=== PATIENT | female | born 1985 | race Caucasian/White ===

== ENCOUNTER 2021-06-03 10:57 | Emergency (ER) | payer OTHER, SELFPAY ==
[2021-06-03] VITALS (9 sets, daily range): BP systolic 149–189; BP diastolic 99–117; PULSE 61–82; RESP 12–25; TEMP 36.4; O2SAT 99–100
--- NOTE | ~2021-06-03 | XR_ITS ---
XR chest 2V DATE: 06/03/2021 12:02 INDICATION: Chest pain started today TECHNIQUE: PA and lateral views COMPARISON: None FINDINGS: Normal heart size. No hilar or mediastinal enlargement. No pulmonary infiltrate or consolid ation, pleural effusion or pulmonary vascular congestion or pneumothorax. Status post cholecystectomy. Included skeletal structures appear normal. IMPRESSION: No active cardiac pulmonary disease Status post cholecystectomy Reviewed, dictated and finalized at location A. FIRST ASSIST REGISTERED NURSE
--- NOTE | 2021-06-03 11:05 | ECG_ITS ---
Measurements Intervals [place] Rate: 70 P: 30 UT: 176 QRS: -7 QRSD: 85 T: 16 QT: 392 QTc: 426 Interpretive Statements SINUS RHYTHM VOLTAGE CRITERIA FOR LVH BORDERLINE R WAVE PROGRESSION, ANTERIOR LEADS MINIMAL Q WAVES- HIGH LATERAL LEADS BORDERLINE ECG Electronically Signed On 06-03-2021 14:28:17 BASE LOADER by Oscar De León D.O.
[2021-06-03 12:02] LABS: Partial Thromboplastin Time 23.1 SECONDS (22.3-36.8)
[2021-06-03 12:07] LABS: INR 1.1; Prothrombin Time 13.8 Seconds (11.1-14.7)
[2021-06-03 12:08] LABS: Alanine Aminotransferase 21 U/L (4-35); Albumin Level 4.4 g/dL (3.5-5.1); Alkaline Phosphatase 90 U/L (38-126); Anion Gap 8 mmol/L (8-16); Aspartate Amino Transferase 27 U/L (14-36); Bilirubin,Total 0.4 mg/dL (0.2-1.3); Blood Urea Nitrogen 13 mg/dL (7-17); Calcium 8.9 mg/dL (8.4-10.2); Carbon Dioxide 25 mmol/L (22-30); Chloride 103 mmol/L (98-107); Estimated CRCL calculation 89 ml/min; Estimated Glomerular Filt Rate > 60; Glucose 93 mg/dL (65-110); Lipase 42 U/L (23-300); Potassium 4.3 mmol/L (3.4-5.0); Sodium 136 mmol/L (137-145)
[2021-06-03 12:19] LABS: Troponin I < 0.012 ng/mL (0.000-0.034)
--- NOTE | 2021-06-03 12:24 | ED.GENADULT ---
HPI - General Adult General Chief complaint: Chest Pain Stated complaint: chest pain Time Seen by Provider: 06/03/21 11:30 Source: patient Mode of arrival: ambulatory Limitations: no limitations History of Present Illness HPI narrative: Patient presents for evaluation of chest congestion and chest tightness. She indicates she tested positive for Covid at home approximately 2 weeks ago. At that time she was having sinus congestion. That improved however she has developed chest congestion in the past three days. She reports nonproductive cough. She states she has experienced intermittent chest tightness since yesterday. Symptoms occur quite frequently. She does note that her symptoms do occur with cough and deep inspiration however she also has symptoms otherwise. She usually has back pain between the scapulas when this happens. She denies any fever, chills, nausea, vomiting, diarrhea. She has been taking mucinex for her symptoms. She is a former smoker. No personal or family hx of DVT/PE. No leg swelling. She is not on exogenous estrogen. She went to urgent care today and her BP was elevated so she was directed to come here for further evaluation and treatment. No underlying hx of HTN. Related Data Allergies Allergy/AdvReac Type Severity Reaction Status Date / Time No Known Allergies Allergy Unverified 03/10/17 07:36 Review of Systems Review of Systems: CONSTITUTIONAL: Denies fever, chills, or sweats. EYES: Denies visual changes, redness, or discharge. ENT: Denies rhinorrhea, congestion, sore throat, or otalgia. CARDIOVASCULAR: Reports chest tightness. Denies palpitations, or edema. RESPIRATORY: Reports nonproductive cough. Denies shortness of breath. GASTROINTESTINAL: Denies abdominal pain, nausea, vomiting, or diarrhea. GENITOURINARY: Denies dysuria or hematuria. SKIN: Denies rash or itching. MUSCULOSKELETAL: Denies back pain, joint pain, or myalgia. NEUROLOGIC: Denies headache, numbness, dizziness, or weakness. PSYCHIATRIC: Denies anxiety or depression. [facility] Past Medical History Medical History (Updated 06/03/21 @ 15:04 by Phill Becker, RICHA, TOBIAS) No pertinent past medical history Surgical History Surgical History No pertinent past surgical history Family History Family History Mother Carcinoma of colon Other Diabetes mellitus Family history of kidney disease Hypertension Social History Social History (Updated 06/03/21 @ 12:33 by Phill Becker, RICHA, ) Smoking status: Former smoker Alcohol intake: current Substance use: never Living arrangements: with family Gender identity (if verbalized by the patient): Female Spiritual care concerns: No Exam Narrative: GENERAL: Well-appearing, well-nourished, and in no acute distress. HEAD: Normocephalic, atraumatic. EYES: PERRLA and EOMI. ENT: Nares clear, no rhinorrhea or epistaxis. Mucous membranes moist. Oropharynx without tonsillar hypertrophy exudate or other lesions. Bilateral TMs pearly douglas nonbulging NECK: Supple. No adenopathy or masses. No carotid bruits or JVD CHEST: Clear to auscultation. Cough present on exam. No respiratory distress. No wheezes rales or rhonchi HEART: Regular rate and rhythm. No murmur heard. Normal peripheral pulses. ABDOMEN: Soft, nontender, nondistended, normal active bowel sounds. EXTREMITIES: Normal range of motion. No edema. SKIN: Warm, dry, no rash. NEURO: No focal deficits. Alert and oriented x3. PSYCH: Normal mood and affect. Course Course Emergency Course: This is a 36-year-old female who present with complaints of chest tightness in the setting of a recent positive COVID test. She was seen in urgent care and sent here due to elevated blood pressure. She had a history of pneumonia in the past and was concerned that she may have such so sought medical attention to
[2021-06-03 12:27] LABS: Basophils Absolute Auto 0.1 K/mm3 (0.0-0.1); Basophils Percent Auto 0.5 % (0.2-1.2); Eosinophils Absolute Auto 0.2 K/mm3 (0-0.3); Eosinophils Percent Auto 2.1 % (0-4.4); Hematocrit 38.7 % (37.0-47.0); Hemoglobin 12.7 g/dL (12.0-15.0); Immature Granulocyte Absolute 0.04 K/mm3 (0.00-0.031); Immature Granulocyte Percent A 0.4 % (0-0.5); Lymphocytes Absolute Auto 2.72 K/mm3 (0.9-3.2); Lymphocytes Percent Auto 26.1 % (18.3-44.2); Mean Corpuscular HGB Conc 32.8 g/dl (32-36); Mean Corpuscular Volume 94.4 fl (80-100); Mean Platelet Volume 9.5 fl (7.4-10.4); Monocytes Absolute Auto 0.4 K/mm3 (0.1-0.6); Monocytes Percent Auto 3.9 % (2.6-8.5); Platelet Count Result 398 k/mm3 (150-375); White Blood Count 10.4 K/mm3 (4.5-10.0)
[2021-06-03 12:57] LABS: D Dimer 0.42 ug/mL (<0.48)
[2021-06-03 14:49] LABS: Troponin I < 0.012 ng/mL (0.000-0.034)
== END 2021-06-03 15:28 | disposition home or self-care (01) ==
PROVIDERS: Emergency Medicine; Emergency Provider Nurse Practitioner; PCP Internal Medicine
DX: R07.89 Other chest pain (principal); Z86.16 Personal history of COVID-19; Z87.891 Personal history of nicotine dependence; R94.31 Abnormal electrocardiogram [ECG] [EKG]; Z87.01 Personal history of pneumonia (recurrent)
CPT/HCPCS: 36415; 71046; 80053; 83690; 84484; 85025; 85380; 85610; 85730; 93005; 99284

== ENCOUNTER 2022-01-08 10:35 | Outpatient (CLI) | payer OTHER, SELFPAY ==
[2022-01-08 19:56] LABS: Alanine Aminotransferase 22 U/L (6-35); Albumin Level 4.5 g/dL (3.5-5.1); Alkaline Phosphatase 76 U/L (38-126); Anion Gap 11 mmol/L (8-16); Aspartate Amino Transferase 41 U/L (14-36); Bilirubin,Total 0.4 mg/dL (0.2-1.3); Blood Urea Nitrogen 14 mg/dL (7-17); Calcium 9.1 mg/dL (8.4-10.2); Carbon Dioxide 26 mmol/L (22-30); Chloride 101 mmol/L (98-107); Cholesterol 206 mg/dL (0-200); Estimated Glomerular Filt Rate > 60; Glucose 89 mg/dL (65-110); HDL Direct 38 mg/dL; Hematocrit 36.7 % (37.0-47.0); Hemoglobin 11.8 g/dL (12.0-15.0); Mean Corpuscular HGB Conc 32.2 g/dl (32-36); Mean Corpuscular Volume 96.3 fl (80-100); Mean Platelet Volume 9.6 fl (7.4-10.4); Platelet Count Result 445 k/mm3 (150-375); Potassium 4.5 mmol/L (3.4-5.0); Red Blood Count 3.81 M/mm3 (4.2-5.4); Red Cell Distribution Width 12.5 % (11.5-14.5); Sodium 138 mmol/L (137-145); Triglycerides 106 mg/dL (<150); White Blood Count 9.2 K/mm3 (4.5-10.0)
[2022-01-08 20:07] LABS: LDL Cholesterol Direct 127 mg/dL
[2022-01-08 21:25] LABS: Hemoglobin A1C 5.6 % (<5.7)
[2022-01-08 22:02] LABS: Vitamin D 25 Hydroxy 38.1 ng/mL
== END 2022-01-08 10:36 | disposition home or self-care (01) ==
LOC: ANHGOSHLAB 10:43
PROVIDERS: PCP Family Medicine; Visit Provider Nurse Practitioner
DX: E28.2 Polycystic ovarian syndrome (principal); Z11.3 Encounter for screening for infections with a predominantly sexual mode of transmission; Z20.2 Contact with and (suspected) exposure to infections with a predominantly sexual mode of transmission; R42 Dizziness and giddiness; E66.9 Obesity, unspecified; Z13.21 Encounter for screening for nutritional disorder
CPT/HCPCS: 36415; 80053; 80061; 82306; 82607; 83036; 84443; 85027

== ENCOUNTER 2022-02-02 09:58 | Outpatient (CLI) | payer OTHER, SELFPAY | END 2022-02-02 09:59 | disposition home or self-care (01) | LOC: ANHGOSHLAB 10:01 | PROVIDERS: PCP Family Medicine; Visit Provider Family Medicine | DX: H53.8 Other visual disturbances (principal); I10 Essential (primary) hypertension; R23.1 Pallor; R53.83 Other fatigue | CPT/HCPCS: 99199; 36415 ==

== ENCOUNTER → 2022-02-05 10:52 | Outpatient (CLI) | payer OTHER, SELFPAY ==
--- NOTE | ~2022-02-05 | CT_ITS ---
EXAMINATION: CT brain wo con DATE: 02/05/2022 11:08 INDICATION: Other visual disturbances. TECHNIQUE: Computed tomography (CT) of the head was performed without intravenous contrast. The mA wa s adjusted according to patient size. Iterative reconstruction technique was employed. The dose-lengt h product was 599.57 mGy-cm. COMPARISON: None FINDINGS: There is no intracranial hemorrhage, acute infarction, or abnormal intracranial mass lesion . The ventricles are normal in size. The orbits are normal. The paranasal sinuses are clear. The mast oid air cells are normal. IMPRESSION: 1. Normal brain. Reviewed, dictated and finalized at location A. IMPRESSION: 1. Normal brain.
== END ==
PROVIDERS: PCP Family Medicine; Visit Provider Family Medicine
DX: H53.8 Other visual disturbances (principal); R20.2 Paresthesia of skin; R23.1 Pallor
CPT/HCPCS: 70450

== ENCOUNTER 2022-03-05 10:06 | Outpatient (CLI) | payer OTHER, SELFPAY ==
--- NOTE | 2022-03-09 15:54 | WPDHOLTEREM ---
Holter/Event Monitor Holter/Event Monitor Date of procedure: 03/05/22 Holter/Event Procedure: 48 Hr Holter Monitor Indications: Palpitations Conclusion: 1. 48 hour holter monitor on 03/05/22. 2. Underlying rhythm is sinus rhythm. HR range 41-119 bpm; average HR 66 bpm. 3. There are 3 premature supraventricular complexes. No supraventricular tachycardia. 4. No premature ventricular complexes. No ventricular tachycardia. 5. No sinoatrial or atrioventricular blocks. No significant pauses greater than 2 seconds. 6. Patient reports symptoms of fluttering, dizziness which demonstrate sinus rhythm, HR range 56-95 bpm.
== END 2022-03-05 10:07 | disposition home or self-care (01) ==
LOC: ANHCARD 10:06
PROVIDERS: PCP Family Medicine; Visit Provider Nurse Practitioner
DX: R00.2 Palpitations (principal)
CPT/HCPCS: 93225; 93226

== ENCOUNTER → 2022-06-16 10:39 | Outpatient (CLI) | payer OTHER, SELFPAY ==
--- NOTE | ~2022-06-16 | US_ITS ---
EXAMINATION: US carotid duplex BI DATE: 06/16/2022 11:01 INDICATION: TECHNIQUE: Grayscale, color Doppler, and pulsed Doppler images of the cervical carotid arteries were obtained. The degree of vessel stenosis is placed in one of the following categories: normal, <50%, 5 0-69%, >=70% but less than near-occlusion, near-occlusion, or total occlusion. Note that percent sten osis relative to normal distal artery lumen diameter is indirectly measured from velocity measurement s as described by Koffi, et al. Radiology 2003; 229:340-346. Notes: Normal: Peak systolic velocity <125 centimeters/sec and no plaque <50%. Peak systolic velocity <125 ( EDV <40; ICA/CCA PSV ratio <2.0; used these factors only a tandem lesions or low cardiac output or co ntralateral disease) 50-69 %: PSV 125-230 (EDV 40-100; ratio 2-4) >= 70% but less than near occlusion: PSV greater than 230 (EDV > 100; ratio> 4.0) Near Occlusion: PSV that is variable; markedly narrowed lumen Occlusion: Absent flow on color/spectral Doppler and no lumen on douglas scale. COMPARISON: None. FINDINGS: RIGHT: The right common carotid artery (CCA) peak systolic velocity (PSV) is 104 cm/s. The right internal ca rotid artery (ICA) PSV is 85 cm/s. The right ICA end-diastolic velocity (EDV) is 33 cm/s. The right I CA/CCA PSV ratio is 0.8. The external carotid artery (ECA) PSV is 75 cm/s. There is antegrade flow in the right vertebral artery. LEFT: The left CCA PSV is 80 cm/s. The left ICA PSV is 76 cm/s. The left ICA EDV is 30 cm/s. The left ICA/C CA PSV ratio is 1.0. The ECA PSV is 70 cm/s. There is antegrade flow in the left vertebral artery. IMPRESSION: 1. Less than 50% stenosis in the right internal carotid artery by sonographic criteria. 2. Less than 50% stenosis in the left internal carotid artery by sonographic criteria. Reviewed, dictated and finalized at location L. F ADMINISTRATIVE OFFICER IMPRESSION: 1. Less than 50% stenosis in the right internal carotid artery by sonographic stephani perdomo. 2. Less than 50% stenosis in the left internal carotid artery by sonographic denise emerson.
--- NOTE | ~2022-06-16 | MR_ITS ---
MRI of the brain Clinical History: Migraines, dizziness Technique: Axial and sagittal T1-weighted images were acquired. These were followed by axial T2-weigh jackie, diffusion weighted, gradient, and FLAIR images. Following intravenous administration of 18 cc Mu ltiHance gadolinium, T1-weighted fat-sat imaging was performed in the axial and coronal planes. Findings: No abnormal signal identified in the brain parenchyma. No acute infarct, intracranial hemor rhage, or mass lesion identified. Ventricles and subarachnoid spaces are unremarkable. Orbits are unremarkable. Paranasal sinuses and m astoid air cells are clear. Major intracranial flow voids appear intact. Sagittal midline structures are intact. No abnormal postcontrast enhancement identified. IMPRESSION: Unremarkable exam. Reviewed, dictated and finalized at location M. ENT SERVICES REP IMPRESSION: Unremarkable exam.
== END ==
PROVIDERS: PCP Family Medicine; Visit Provider Family Medicine
DX: R42 Dizziness and giddiness (principal); G43.809 Other migraine, not intractable, without status migrainosus; I65.23 Occlusion and stenosis of bilateral carotid arteries
CPT/HCPCS: 70553; 93880; A9577

== ENCOUNTER 2023-01-14 15:59 | Emergency (ER) | payer OTHER, SELFPAY ==
--- NOTE | ~2023-01-14 | XR_ITS ---
EXAMINATION: XR chest 2V DATE: 01/14/2023 16:27 INDICATION: Cough TECHNIQUE: PA and lateral views of the chest are obtained. COMPARISON: 06/03/2021 FINDINGS: The lungs are free of acute opacities. No pleural effusion or pneumothorax. The cardiomedia stinal silhouette is normal. The visualized bones and soft tissues are unremarkable. Surgical clips i n the right upper quadrant are likely from prior cholecystectomy. IMPRESSION: 1. No acute cardiopulmonary abnormality. Reviewed, dictated and finalized at location L.
--- NOTE | 2023-01-14 16:05 | ED.URI ---
HPI - URI/Sore Throat General Chief Complaint: Upper Respiratory Infection Stated Complaint: cough Time Seen by Provider: 01/14/23 16:12 Source: patient and RN notes reviewed Mode of arrival: ambulatory Limitations: no limitations History of Present Illness HPI Narrative: 37-year-old female presents with cough for 3 weeks. She reports she got Augmentin and steroids prescribed by her doctor over the phone, she took those, started feeling better but is now coughing again. She reports she has been using her p.r.n. albuterol inhaler 2 to 3 times a day without relief. She denies fever, aches, chills, sweats. She denies shortness of breath MD elicited complaint: cough Related Data Home Medications Medication Instructions Recorded Confirmed amitriptyline 25 mg tablet 37.5 mg PO QHS 10/09/22 01/05/23 Allergies Allergy/AdvReac Type Severity Reaction Status Date / Time No Known Allergies Allergy Verified 01/05/23 11:30 Review of Systems Review of Systems: CONSTITUTIONAL: Denies malaise, chills, sweats, or fever. EYES: Denies visual changes, redness, or discharge. ENT: Reports rhinorrhea. Denies congestion, sinus pain, otalgia and sore throat. CARDIOVASCULAR: Denies chest pain, palpitations, or edema. RESPIRATORY: Reports cough. Denies dyspnea. GASTROINTESTINAL: Denies abdominal pain, nausea, vomiting, diarrhea SKIN: Denies rash or itching. MUSCULOSKELETAL: Denies myalgia. NEUROLOGIC: Denies headache. All systems reviewed & are unremarkable except as noted in HPI and below PMFSH Past Medical History Medical History delivery delivered No pertinent past medical history Surgical History Surgical History H/O right knee surgery History of cholecystectomy No pertinent past surgical history Family History Family History Mother Carcinoma of colon Other Diabetes mellitus Family history of kidney disease Hypertension Social History Social History (Updated 01/05/23 @ 11:32 by Tatyana Chaudhry MA) Smoking status: Former smoker Alcohol intake: never Substance use: never Substance use type: does not use Lack of Transportation: No Lack of Food: Never True Current Housing: I Have Housing Concerned About Future Housing: No Difficulty Paying Gas/Electric Bills: No Difficulty Paying for Meds: No Currently Unemployed: No Education: Associate Degree Difficulty w/ Childcare or Family Care: No Living arrangements: with family Occupation/Education: occupation Gender identity (if verbalized by the patient): Female Sexual Orientation (if Verbalized by the Patient): Straight or Heterosexual Spiritual care concerns: No Agree to blood products: Yes Comments At time of signature, agree with nursing past medical, surgical, social and family history. There is no relevant family history pertinent to the presenting complaint Exam Narrative: GENERAL: Well-appearing, well-nourished, and in no acute distress. HEAD: Normocephalic EYES: PERRLA, conjunctivae clear ENT: Nares clear, turbinates edematous and erythematous, clear discharge. Mucous membranes moist. TM pearly douglas with dull light reflex bilaterally; no tragal tenderness. Oropharynx not erythematous without lesions. Tonsils not enlarged and without exudate, no drooling, no hoarseness, no trismus, uvula midline. NECK: Supple. No lymphadenopathy CHEST: Inspiratory and expiratory wheeze throughout with crackles noted. No stridor. No respiratory distress, speaks in full sentences. HEART: Regular rate and rhythm. No murmur heard. SKIN: Warm, dry, no rash. NEURO: Alert and oriented x3. PSYCH: Normal mood and affect Course Course Emergency Course: Patient has residual exam revealed poor aeration, diffuse wheezing, she has been using her albut
[2023-01-14 16:13] VITALS: BP 139/102; PULSE 102; RESP 18; TEMP 36.5; O2SAT 98
[2023-01-14] MEDS: IPRATROPIUM BR 0.02% INH SOLN 0.5 MG/2.5 ML VIAL INHALATION (16:35)
[2023-01-14 16:36] VITALS: PULSE 104; RESP 20; O2SAT 95
[2023-01-14] MEDS: ALBUTEROL SULFATE NEB 2.5 MG/3 ML INH INHALATION (16:36)
[2023-01-14 16:44] VITALS: PULSE 110; RESP 20; O2SAT 97
[2023-01-14 16:54] VITALS: PULSE 111; RESP 20; O2SAT 97
== END 2023-01-14 17:00 | disposition home or self-care (01) ==
PROVIDERS: Emergency Provider Nurse Practitioner; PCP Family Medicine
DX: R06.2 Wheezing (principal); R05.9 Cough, unspecified; Z87.891 Personal history of nicotine dependence
CPT/HCPCS: 71046; 94640; 99213; G0463

== ENCOUNTER → 2023-04-08 12:50 | Outpatient (CLI) | payer OTHER, SELFPAY ==
--- NOTE | ~2023-04-08 | MM_ITS ---
EXAMINATION: MM screening mirella BI w ranjit HISTORY: Screening TECHNIQUE: Craniocaudal and mediolateral oblique 3-D tomosynthesis images were obtained and synthetic 2-D images were generated. CAD analysis was submitted and interpreted. COMPARISON: No prior mammogram is available for comparison at this institution. BREAST PARENCHYMAL COMPOSITION: Breast composed of scattered areas of fibroglandular density FINDINGS: There is no evidence of suspicious mass, calcification, or architectural distortion to sugg est malignancy in either breast. There has been no suspicious interval change. IMPRESSION: 1. No mammographic evidence of malignancy. 2. Recommend routine screening mammography in one year. BI-RADS Category 1: Negative Reviewed, dictated and finalized at location A. RITY COMPLIANCE ENGINEER
== END ==
PROVIDERS: PCP Nurse Practitioner; Visit Provider Family Medicine
DX: Z12.31 Encounter for screening mammogram for malignant neoplasm of breast (principal)
CPT/HCPCS: 77063; 77067

== ENCOUNTER 2023-07-08 09:48 | Outpatient (CLI) | payer OTHER, SELFPAY ==
[2023-07-08 12:49] LABS: Hematocrit 38.8 % (37.0-47.0); Hemoglobin 12.6 g/dL (12.0-15.0); Mean Corpuscular HGB Conc 32.5 g/dl (32-36); Mean Corpuscular Hemoglobin 30.9 pg (26-34); Mean Corpuscular Volume 95.1 fl (80-100); Mean Platelet Volume 10.1 fl (7.4-10.4); Platelet Count Result 408 k/mm3 (150-375); Red Blood Count 4.08 M/mm3 (4.2-5.4); Red Cell Distribution Width 12.7 % (11.5-14.5); White Blood Count 9.2 K/mm3 (4.5-10.0)
[2023-07-08 12:53] LABS: Alanine Aminotransferase 23 U/L (6-35); Albumin Level 4.3 g/dL (3.5-5.1); Alkaline Phosphatase 81 U/L (38-126); Anion Gap 5 mmol/L (8-16); Aspartate Amino Transferase 50 U/L (14-36); Bilirubin,Total 0.5 mg/dL (0.2-1.3); Blood Urea Nitrogen 13 mg/dL (7-17); CRP 1.3 mg/dL (<1.0); Calcium 9.2 mg/dL (8.4-10.2); Carbon Dioxide 29 mmol/L (22-30); Chloride 104 mmol/L (98-107); Cholesterol 188 mg/dL (0-200); Estimated Glomerular Filt Rate > 60; Glucose 91 mg/dL (65-110); HDL Direct 41 mg/dL; Potassium 4.4 mmol/L (3.4-5.0); Sodium 138 mmol/L (137-145); Triglycerides 124 mg/dL (<150)
[2023-07-08 13:01] LABS: LDL Cholesterol Direct 118 mg/dL
[2023-07-08 13:22] LABS: Erythrocyte Sedimentation Rate 28 mm/hr (0-20)
[2023-07-08 13:51] LABS: Hemoglobin A1C 5.3 % (<5.7)
[2023-07-13 20:53] LABS: Anti Nuclear Antibody Pattern Nuclear, Speckled; Anti Nuclear Antibody Titer 1:40 (Negative)
== END 2023-07-08 09:49 | disposition home or self-care (01) ==
LOC: ANHGOSHLAB 09:50
PROVIDERS: PCP Nurse Practitioner; Visit Provider Family Medicine
DX: R73.09 Other abnormal glucose (principal); F41.9 Anxiety disorder, unspecified; Z79.899 Other long term (current) drug therapy; I10 Essential (primary) hypertension; E66.9 Obesity, unspecified; R20.0 Anesthesia of skin; M35.9 Systemic involvement of connective tissue, unspecified; R20.9 Unspecified disturbances of skin sensation; R23.0 Cyanosis
CPT/HCPCS: 36415; 80053; 80061; 83036; 84443; 85027; 85652; 86038; 86039; 86140; 86430

== ENCOUNTER 2024-04-13 10:07 | Outpatient (CLI) | payer OTHER, SELFPAY ==
--- NOTE | ~2024-04-13 | MM_ITS ---
EXAMINATION: MM screening mirella BI w ranjit HISTORY: Screening TECHNIQUE: Craniocaudal and mediolateral oblique 3-D tomosynthesis images were obtained and synthetic 2-D images were generated. CAD analysis was submitted and interpreted. COMPARISON: 04/08/2023 BREAST PARENCHYMAL COMPOSITION: There are scattered areas of fibroglandular density. FINDINGS: There is no evidence of suspicious mass, calcification, or architectural distortion to sugg est malignancy in either breast. There has been no suspicious interval change. IMPRESSION: 1. No mammographic evidence of malignancy. 2. Recommend routine screening mammography in one year. BI-RADS Category 1: Negative Reviewed, dictated and finalized at location B. NESS EDUCATION INSTRUCTOR
== END 2024-04-13 10:08 | disposition home or self-care (01) ==
PROVIDERS: PCP Family Medicine; Visit Provider Nurse Practitioner
DX: Z12.31 Encounter for screening mammogram for malignant neoplasm of breast (principal)
CPT/HCPCS: 77063; 77067

== ENCOUNTER 2024-05-30 10:03 | Outpatient (CLI) | payer OTHER, SELFPAY ==
--- OUTSIDE RECORDS SUMMARY | 2024-05-30 10:34 | XMS_ITS | Patient Health Summary ---
Author Organization [facility] Address [address] [place] [address] Care Team Providers Care Iron Worker Foreman Name Role Phone Donato Navarro MD Primary Care Provider [phone] Note from [facility],non-owned Affiliates and Associated Physician Practices is amultiple site organization consisting of ambulatory clinics and hospital sitesin [place], [place], [place] and [place]. This disclosure is being madepursuant to the Care Everywhere program and may not contain all information available regarding this patient. Last updated 18.[facility] Allergies No known active allergies Medications * Be aware that medications may not be up to date on this document. Alwaysverify current medications with the patient. * fluticasone propionate (FLONASE) 50 MCG/ACT nasal spray(Started 06/05/2016) [place] 2 Sprays into each nostril once daily * albuterol HFA (Proventil; Ventolin; Proair) 108 (90 Base) MCG/ACT inhaler (Started 07/03/2021) Inhale 2 (two) puffs by mouth every 6 hours as needed * ALPRAZolam (Xanax) 0.25 MG tablet(Started 07/17/2022) Take 1 (one) tablet by mouth 3 times daily as needed * lisinopril (Prinivil; Zestril) 20 MG tablet(Started 06/17/2022) Take 1 (one) tablet by mouth once daily as needed * omeprazole (PriLOSEC) 20 MG capsule(Started 06/06/2022) Take 1 (one) capsule by mouth once daily * ondansetron (Zofran) 4 MG tablet(Started 07/17/2022) Take 1 (one) tablet by mouth every 8 hours as needed * rizatriptan (Maxalt) 5 MG tablet(Started 07/17/2022) * simvastatin (Zocor) 5 MG tablet(Started 05/29/2022) Take 1 (one) tablet by mouth once daily * Coenzyme Q10 (CoQ-10) 100 MG Take 100 mg by mouth once daily * Cyanocobalamin (B-12) 1000 MCG TABS Take 1 tablet by mouth once daily * Magnesium Oxide 200 MG Take 1 (one) tablet by mouth once daily Active Problems Problem Noted Date Diagnosed Date Near syncope 12/16/2021 08/20/2022 Gastroesophageal reflux disease 07/03/2021 08/20/2022 Essential hypertension 06/06/2021 3 Social History Tobacco Use Types Packs/Day Years Used Date Smoking Tobacco: Former Cigarettes Q uit: 2013 Smokeless Tobacco: Never Tobacco Cessation:Counseling Given: Not Answered Alcohol Use Standard Drinks/Week Comments Yes 0 (1 standard drink = 0.6 oz pur e alcohol) socially, rarely PHQ-2 Answer Date Recorded PHQ2 TOTAL SCORE 2 08/20/2022 Sex and Gender Information Value Date Recorded Sex Assigned at Not on file Gender Identity Not on file Sexual Orientation Not on file Last Filed Vital Signs Vital Sign Reading Time Taken Comments Blood Pressure 112/78 08/20/2022 10:36 AM CDT Pulse 76 08/20/2022 10:36 AM CDT Temperature 36.9 ??C (98.4 ??F) 06/05/2016 12:[address] Respiratory Rate - - Oxygen Saturation 98% 06/05/2016 12:38 PM SANDER AND BUFFER Inhaled Oxygen Concentration - - Weight 88.5 kg (195 lb) 08/20/2022 10:36 AM CDT Height 154.9 cm (5' 1 ) 08/20/2022 10:36 AM CDT Body Mass Index 36.84 08/20/2022 10:36 AM CDT Procedures * INFLUENZA A+B - POINT OF CARE (AMB)(Performed 06/05/2016) Performed for Viral illness Results * INFLUENZA A+B - POINT OF CARE (AMB) (06/05/2016 12:52 PM SANDER AND BUFFER) Influenza A Antigen Rapid Negative Negative Influenza B Antigen Rapid Negative Negative Influenza Internal Control positive NEGATIVE - POSITIVE Influenza Lot Number [id number] Influenza Expiration Date , Other NASOPHARYNGEAL SWAB / Unknown 06/05/2016 12:52 PM SANDER AND BUFFER Ina [facility] - POINT O F CARE ORDERABLES Care Teams Iron Worker Foreman Relationship Specialty Start Date End Date Donato Navarro MD [address] [place] [address] [address] [place] [address] PCP - General Internal Medicine 06/05/16
--- OUTSIDE RECORDS SUMMARY | 2024-05-30 10:34 | XMS_ITS | Referral Summary ---
Author Organization [facility] Address [address] [place] [address] Care Team Providers Care Detective Precinct Name Role Phone Donato Navarro MD Primary Care Provider [phone] Source Comments [facility],non-owned Affiliates and Associated Physician Practices is amultiple site organization consisting of ambulatory clinics and hospital sitesin [place], [place], [place] and [place]. This disclosure is being madepursuant to the Care Everywhere program and may not contain all information available regarding this patient. Last updated 18.[facility] Allergies No known active allergies Medications * Be aware that medications may not be up to date on this document. Alwaysverify current medications with the patient. Medication Sig Dispensed Refills Start Date End Date Status fluticasone propionate (FLONASE) 50 MCG/ACT nasal sprayIndications:Dysf unction of Eustachian tube, bilateral [place] 2 Sprays into each nostril once daily 1 Bottle 06/05/2016 Active albuterol HFA (Proventil; Ventolin; Proair) 108 (90 Base) MCG/ACT inhaler Inhale 2 (two) puffs by mouth every 6 hours as needed 07/03/2021 Active ALPRAZolam (Xanax) 0.25 MG tablet Take 1 (one) tablet by mouth 3 times daily as needed 07/17/2022 Active lisinopril (Prinivil; Zestril) 20 MG tablet Take 1 (one) tablet by mouth once daily as needed 06/17/2022 Active omeprazole (PriLOSEC) 20 MG capsule Take 1 (one) capsule by mouth once daily 06/06/2022 Active ondansetron (Zofran) 4 MG tablet Take 1 (one) tablet by mouth every 8 hours as needed 07/17/2022 Active rizatriptan (Maxalt) 5 MG tablet 07/17/2022 Active simvastatin (Zocor) 5 MG tablet Take 1 (one) tablet by mouth once daily 05/29/2022 Active Coenzyme Q10 (CoQ-10) 100 MG Take 100 mg by mouth once daily Active Cyanocobalamin (B-12) 1000 MCG TABS Take 1 tablet by mouth once daily Active Magnesium Oxide 200 MG Take 1 (one) tablet by mouth once daily Active Active Problems Problem Noted Date Diagnosed Date Near syncope 12/16/2021 08/20/2022 Overview (08/20/2022): Last Assessment & Plan: Will evaluate further with labs Discussed further workup such as 30d event monitor, ct of head. She wants to await results of lab work first. Gastroesophageal reflux disease 07/03/2021 08/20/2022 Overview (08/20/2022): Last Assessment & Plan: Advised cutting back on acidic foods, elevating head of bed Will add protonix 40mg daily Discussed gi referral if symptoms aren't improving over the coming month Essential hypertension 06/06/2021 Overview (08/20/2022): Last Assessment & Plan: Stable on current meds, continue the same at this time Social History Tobacco Use Types Packs/Day Years [...] - Oxygen Saturation 98% 06/05/2016 12:38 PM TUNGSTEN TENDER Inhaled Oxygen Concentration - - Weight 88.5 kg (195 lb) 08/20/2022 10:36 AM CDT Height 154.9 cm (5' 1 ) 08/20/2022 10:36 AM CDT Body Mass Index 36.84 08/20/2022 10:36 AM CDT Plan of Treatment Not on file Care Teams Detective Precinct Relationship Specialty Start Date End Date Donato Navarro MD [address] [place] [address] [address] [place] [address] PCP - General Internal Medicine 06/05/16
--- OUTSIDE RECORDS SUMMARY | 2024-05-30 10:34 | XMS_ITS | Clinical Summary ---
Author Organization [facility] Address [address] [place] [address] Care Team Providers Care Dictaphone Operator Name Role Phone Yvette Weiss Primary Care Provider [phone] Allergies No known active allergies Medications lisinopriL (PRINIVIL,ZESTRI L) 20 mg tablet Take 1 tablet (20 mg total) by mouth daily 30 tablet [address] (PROTONIX) 40 mg EC tabletIndication s:Gastroesophage al reflux disease, unspecified whether esophagitis present Take 1 tablet (40 mg total) by mouth daily 30 tablet 3 2 Active albuterol HFA (PROVENTIL HFA,VENTOLIN HFA,PROAIR HFA) 90 mcg/actuation inhalerIndicatio ns:Shortness of breath Inhale 2 puffs every 6 (six) hours as needed for wheezing 1 each 3 2 Active fluticasone propion-salmeter oL (ADVAIR DISKUS) 250-50 mcg/dose diskus inhaler Inhale 1 puff 2 (two) times a day Rinse mouth with water after use. Do not swallow. 1 each 11 2 Active Active Problems Problem Noted Date Diagnosed Date History of prediabetes 12/16/2021 Assessment & Plan (12/16/2021 3:22 PM CDT): Will evaluate further with labs History of anemia 12/16/2021 Assessment & Plan (12/16/2021 3:22 PM CDT): Will evaluate further with labs, will notify her of results as they become available. Near syncope 12/16/2021 Assessment & Plan (12/16/2021 3:23 PM CDT): Will evaluate further with labs Discussed further workup such as 30d event monitor, ct of head. She wants to await results of lab work first. Gastroesophageal reflux disease 07/03/2021 Assessment & Plan (07/03/2021 11:21 PM TURNING AND BEADING MACHINE OPERATOR): Advised cutting back on acidic foods, elevating head of bed Will add protonix 40mg daily Discussed gi referral if symptoms aren't improving over the coming month Obesity (BMI 30-39.9) 07/03/2021 Shortness of breath 06/19/2021 Assessment & Plan (07/03/2021 11:20 PM TURNING AND BEADING MACHINE OPERATOR): Stable on inhalers, continue the same at this time Has pending appt with pulwilfredo that she will keep Assessment & Plan (06/19/2021 11:00 AM TURNING AND BEADING MACHINE OPERATOR): We discussed unfortunate limitations of video/phone visit. She declines an er visit at this time. She will add advair bid She will continue with proventil hfa 2 puffs q6h as needed for dyspnea/wheezing She will report to the er this weekend if symptoms worsen Essential hypertension 06/06/2021 Assessment & Plan (07/03/2021 11:19 PM TURNING AND BEADING MACHINE OPERATOR): Stable on current meds, continue the same at this time Assessment & Plan (06/19/2021 11:00 AM TURNING AND BEADING MACHINE OPERATOR): Increase lisinopril to 20mg daily She will continue to monitor home bp with goal 120-130/70-80 She will call over the next week with home bp readings Assessment & Plan (06/06/2021 12:01 PM TURNING AND BEADING MACHINE OPERATOR): Will initiate lisinopril 10mg daily She was advised to monitor bp with goal 130/80, will call over the next week with home bp results Will retrieve er notes from alfonso for review History of COVID-19 06/06/2021 Hydrosalpinx 11/23/2013 Resolved Problems Problem Noted Date Diagnosed Date Resolved Date Encounter to establish care 06/06/2021 07/02/2021 Assessment & Plan (06/06/2021 12:02 PM TURNING AND BEADING MACHINE OPERATOR): She notes routine gynecological care with Dr. Alberts's office Immunizations Name Administration Dates Next Due Influenza, Quadrivalent, Spl it, Preservative Free, Intramuscular 01/23/2020 Influenza, Unspecified 06/06/2021(Deferred: Zabrina ent Refused) Surgical History Surgery Date Site/Laterality Comments SECTION 01-08-15 CHOLECYSTECTOMY ANTERIOR CRUCIATE LIGAMENT REPAIR Right MENISCUS SURGERY Right TUBAL LIGATION Medical History Medical History Date Comments Chronic salpingitis Hydrosalpinx - (Added by TW Conv) Chronic salpingitis Hydrosalpinx - (Added by TW Conv) GERD (gastroesophageal reflux disease) Anxiety Hypertension Family History Medical History Relation Name Comments Cancer Father Christiano Hypertension Father Christiano Cancer Mother Mariah Hypertension Mother Mariah Kidney disease Paternal Grandfather Db Relation Name Status Comments Father Christiano Mother Mariah Paternal Grandfather Db Social History Tobacco Use Types Packs/Day Years Used Date Smoking Tobacco: Former Smokeless Tobacco: Never Comments:quit 10 years ago,lluvia mcallister x 10 years, 1/2 ppd AUDIT-C Answer Date Recorded Q1: How often do you have a drink containing alc ohol? Monthly or less 07/03/2021 Q2: How many drinks containi ng alcohol do you have on a typical day when you are drinking? 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 Not on file Obstetrics History Last Filed Vital Signs Vital Sign Reading Time Taken Comments Blood Pressure 124/70 12/16/2021 1:43 PM CDT Pulse 62 12/16/2021 1:43 PM CDT Temperature 36.6 ??C (97.9 ??F) 12/16/2021 1:43 PM CD T Respiratory Rate 18 10/16/2021 9:45 AM CDT Oxygen Saturation 99% 12/16/2021 1:43 PM CDT Inhaled Oxygen Concentration - - Weight 87.6 kg (193 lb 1.6 oz) 12/16/2021 1:43 P M CDT Height 154.9 cm (5' 1 ) 12/16/2021 1:43 PM CDT Body Mass Index 36.49 12/16/2021 1:43 PM CDT Plan of Treatment Health Maintenance Due Date Last Done Comments Breast Cancer Screening-Mammogram 1983 Cervical Cancer Screening 1983 DTaP/Tdap/Td Vaccine (1 - Tdap) 1994 Varicella Vaccines (1 of 2 - 13+ 2-dose series) 1996 Hepatitis B Screening 2001 Regular Well Visit/Exam 18-64 2001 Depression Screening 07/03/2022 07/03/2021, 06/06/2021 Covid-19 Vaccine (3 - 2023-2 5 season) 2023 04/09/2021, 06/28/2020 Influenza Vaccine (#1) 2023 01/23/2020 Hepatitis C Screening Completed 12/26/2013 HPV Vaccines Aged Out No longer eligi ble based on patient's age to complete this topic Pneumococcal vaccine <65 Aged Out No longer eligible based on patient's age to complete this topic Procedures Procedure Name Priority Date/Time Associated Diagnosis Comments SERUM HEPATITIS C AB Routine 12/26/2013 6:30 AM CDT from Last 3 Months or Most Recently Relevant to Health Maintenance Results * Serum Hepatitis C ab (12/26/2013 6:30 AM CDT) HCV ab Negative NEG HISTORICAL RESULTS Serum 12/26/2013 6:30 AM CDT Narrative HISTORICAL RESULTS - 12/27/2013 6:24 AM CDT {Testing performed by: [place] [address]} Interpretive Data If confirmation is required, call Laboratory Customer Service to request sample to be sent to [facility] for Hepatitis C Virus (HCV) RNA Detection and Quantitation by Real-Time Reverse Collar Fuser-PCR (RT-PCR). Current interpretive data was last revised on 2011 us Regino Hale MD LAB BLOOD ORDERABLES Final Re sult HISTORICAL RESULTS from Last 3 Months or Most Recently Relevant to Health Maintenance Insurance Care Teams Dictaphone Operator Relationship Specialty Start Date End Date Yvette Weiss PA PCP - General Gas Appliance Repairer 06/06/21
--- OUTSIDE RECORDS SUMMARY | 2024-05-30 10:34 | XMS_ITS | Continuity of Care Document ---
Author Organization [facility] Address [address] [place] [address] Phone Care Team Providers Care Nurse Outreach Case Manager Name Role Phone Unavailable Unavailable Unavailable Advance Directives Directive Yes / No Effective Date File Name No Information Encounters Encounter Description Practice Location Reason(s) For Visit Diagnoses Date Provider Providers Copied on Encounter [facility], [address] [facility], [place], [place], [id number], tel:[phone] [facility] No Information No Information Referring Provider: CLYDE Eisenberg, [address], [place], [address]. tel:[phone] Family History Family Member Type Diagnosis Age At Onset No Information Payers Payer name Insurance type Covered constitution party ID Authorcadena lisa(s) [facility] POS [id number] CI [id number] Social History Type Description Quantity Date Captured Comments Sex Female Smoking Status No Information Chief Complaint And Reason For Visit No Information History Of Present Illness Encounter Date Complaint History Of Prese nt Illness No Information Instructions Date Instruction Additional Infor mation No Information Assessments Type Assessment Date No Information
--- OUTSIDE RECORDS SUMMARY | 2024-05-30 10:34 | XMS_ITS | Clinical Summary ---
Author Organization [employer] [address] [facility] 3rd [place] [address] Phone Care Team Providers Care Dining Room Helper Name Role Phone Unavailable Primary Care Provider Unavailabl e Social History Tobacco Use Types Packs/Day Years Used Date Smoking Tobacco: Never Assessed Comments Unknown Sex and Gender Information Value Date Recorded Sex Assigned at Not on file Legal Sex Female 11:51 AM CDT Gender Identity Not on file Sexual Orientation Not on file Plan of Treatment Health Maintenance Due Date Last Done Comments DTAP/TDAP/TD VACCINES (1 - Tdap) 2002 HEPATITIS B VACCINES (1 of 3 - 19+ 3-dose series) 2002 CERVICAL CANCER SCREENING 2013 BREAST CANCER SCREENING 2023 INFLUENZA VACCINE (#1) 2023 HPV VACCINES Aged Out No longer eligi ble based on patient's age to complete this topic Insurance
--- OUTSIDE RECORDS SUMMARY | 2024-05-30 10:34 | XMS_ITS | Clinical Summary ---
Author Organization [facility] Address [address] [place] [address] Care Team Providers Care Divine Healer Name Role Phone Donato Navarro MD Primary Care Provider [phone] Source Comments [facility],non-owned Affiliates and Associated Physician Practices is amultiple site organization consisting of ambulatory clinics and hospital sitesin [place], [place], [place] and [place]. This disclosure is being madepursuant to the Care Everywhere program and may not contain all information available regarding this patient. Last updated 18.[facility] Allergies No known active allergies Medications * Be aware that medications may not be up to date on this document. Alwaysverify current medications with the patient. Medication Sig Dispensed Refills Start Date End Date Status fluticasone propionate (FLONASE) 50 MCG/ACT nasal sprayIndications:Dysf unction of Eustachian tube, bilateral [place] 2 Sprays into each nostril once daily [...] over the coming month Essential hypertension 06/06/2021 3 Overview (08/20/2022): Last Assessment & Plan: Stable on current meds, continue the same at this time Family History Medical History Relation Name Comments Diabetes - Type 2 Father Relation Name Status Comments Father Social History Tobacco Use Types Packs/Day Years Used Date Smoking Tobacco: Former Cigarettes Q uit: 2012 Smokeless Tobacco: Never Tobacco Cessation:Counseling Given: Not [...] - Oxygen Saturation 98% 06/05/2016 12:38 PM CANAL EQUIPMENT MECHANIC Inhaled Oxygen Concentration - - Weight 88.5 kg (195 lb) 08/20/2022 10:36 AM CDT Height 154.9 cm (5' 1 ) 08/20/2022 10:36 AM CDT Body Mass Index 36.84 08/20/2022 10:36 AM CDT Plan of Treatment Health Maintenance Due Date Last Done Comments MAMMOGRAM 1983 PAP SMEAR 1983 HIV SCREENING 1998 HEPATITIS C SCREENING 05/16/2001 DTAP/TDAP/TD VACCINES (1 - Tdap) 2002 HEPATITIS B VACCINE (1 of 3 - 19+ 3-dose series) 2002 COVID-19 VACCINE ( - 2023-2 5 season) 2023 INFLUENZA VACCINE (#1) 2023 01/23/2020 DEPRESSION SCREENING 04/26/2024 08/20/2022 ZOSTER VACCINE (1 of 2) 2033 HIB VACCINE Aged Out No longer eligi ble based on patient's age to complete this topic HPV VACCINE Aged Out No longer eligi ble based on patient's age to complete this topic MENINGOCOCCAL (Group B) VACCINE Aged Out No longer eligible based on patient's age to complete this topic MENINGOCOCCAL VACCINE Aged Out No geoff liliana eligible based on patient's age to complete this topic PNEUMOCOCCAL VACCINE Aged Out No long er eligible based on patient's age to complete this topic Care Teams Divine Healer Relationship Specialty Start Date End Date Donato Navarro MD [address] [place] [address] [address] [place] [address] PCP - General Internal Medicine 06/05/16
--- OUTSIDE RECORDS SUMMARY | 2024-05-30 10:34 | XMS_ITS | Referral Summary ---
Author Organization [facility] Address [address] [place] [address] Care Team Providers Care Shuttle Preparation Supervisor Name Role Phone Yvette Weiss Primary Care Provider [phone] Allergies No known active allergies Medications lisinopriL [...] 07/03/2021 Assessment & Plan (07/03/2021 11:21 PM HOME HEALTH CARE WORKER): Advised cutting back on acidic foods, elevating head of bed Will add protonix 40mg daily Discussed gi referral if symptoms aren't improving over the coming month Obesity (BMI 30-39.9) 07/03/2021 Shortness of breath 06/19/2021 Assessment & Plan (07/03/2021 11:20 PM HOME HEALTH CARE WORKER): Stable on inhalers, continue the same at this time Has pending appt with pulwilfredo that she will keep Assessment & Plan (06/19/2021 11:00 AM HOME HEALTH CARE WORKER): We discussed unfortunate limitations of video/phone visit. She declines an er visit at this time. She will add advair bid She will continue with proventil hfa 2 puffs q6h as needed for dyspnea/wheezing She will report to the er this weekend if symptoms worsen Essential hypertension 06/06/2021 Assessment & Plan (07/03/2021 11:19 PM HOME HEALTH CARE WORKER): Stable on current meds, continue the same at this time Assessment & Plan (06/19/2021 11:00 AM HOME HEALTH CARE WORKER): Increase lisinopril to 20mg daily She will continue to monitor home bp with goal 120-130/70-80 She will call over the next week with home bp readings Assessment & Plan (06/06/2021 12:01 PM HOME HEALTH CARE WORKER): Will initiate lisinopril 10mg daily She was advised to monitor bp with goal 130/80, will call over the next week with home bp results Will retrieve er notes from alfonso for review History of COVID-19 06/06/2021 Hydrosalpinx 11/23/2013 Resolved Problems Problem Noted Date Diagnosed Date Resolved Date Encounter to establish care 06/06/2021 07/02/2021 Assessment & Plan (06/06/2021 12:02 PM HOME HEALTH CARE WORKER): She notes routine gynecological care with Dr. 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 Last Filed Vital Signs [...] 12/16/2021 1:43 PM CDT Plan of Treatment Not on file Procedures Procedure Name Priority Date/Time Associated Diagnosis Comments SERUM HEPATITIS C AB Routine 12/26/2013 6:30 AM CDT from Last 3 Months or Most Recently Relevant to Health Maintenance Results * Serum Hepatitis C ab (12/26/2013 6:30 AM CDT) HCV ab Negative NEG HISTORICAL RESULTS Serum 12/26/2013 6:30 AM CDT Narrative HISTORICAL RESULTS - 12/27/2013 6:24 AM CDT {Testing performed by: [place] [address]} Interpretive Data If confirmation is required, call Laboratory Customer Service to request sample to be sent to [facility] for Hepatitis C Virus (HCV) RNA Detection and Quantitation by Real-Time Reverse Vp Of Product-PCR (RT-PCR). Current interpretive data was last revised on 2011 us Regino Hale MD LAB BLOOD ORDERABLES Final Re sult HISTORICAL RESULTS from Last 3 Months or Most Recently Relevant to Health Maintenance Insurance [facility] CHOICE PLUS [facility] CHOICE PLUS Care Teams Shuttle Preparation Supervisor Relationship Specialty Start Date End Date Yvette Weiss PA PCP - General Arabic Teacher 06/06/21
--- OUTSIDE RECORDS SUMMARY | 2024-05-30 10:34 | XMS_ITS | CONTINUITY OF CARE DOCUMENT ---
Author Name galina mojica Address Unknown Organization [facility] Office Address [address] [place] [address] [address] [place] [address] Phone [phone] Care Team Providers Care Sparmaker Name Role Phone Kylah SHARMA, Carmelo Unavailable [phone] Carmelo Montero MD Unavailable [phone] INSURANCE PROVIDERS Payer name Policy type / Coverage type [place] red constitution party ID [facility] [id number] Other [id number]
[2024-05-30 12:26] LABS: Hematocrit 39.3 % (37.0-47.0); Hemoglobin 12.9 g/dL (12.0-15.0); Mean Corpuscular HGB Conc 32.8 g/dl (32-36); Mean Corpuscular Hemoglobin 30.9 pg (26-34); Mean Corpuscular Volume 94.2 fl (80-100); Mean Platelet Volume 9.4 fl (7.4-10.4); Platelet Count Result 394 k/mm3 (150-375); Red Blood Count 4.17 M/mm3 (4.2-5.4); Red Cell Distribution Width 12.2 % (11.5-14.5); White Blood Count 8.5 K/mm3 (4.5-10.0)
[2024-05-30 13:38] LABS: Hemoglobin A1C 5.6 % (<5.7)
[2024-05-30 15:28] LABS: Alanine Aminotransferase 32 U/L (6-35); Albumin Level 4.2 g/dL (3.5-5.1); Alkaline Phosphatase 82 U/L (38-126); Anion Gap 9 mmol/L (4-12); Aspartate Amino Transferase 28 U/L (14-36); Bilirubin,Total 0.5 mg/dL (0.2-1.3); Blood Urea Nitrogen 16 mg/dL (7-17); Calcium 8.8 mg/dL (8.4-10.2); Carbon Dioxide 27 mmol/L (22-30); Chloride 101 mmol/L (98-107); Cholesterol 222 mg/dL (0-200); Estimated Glomerular Filt Rate > 60; Glucose 93 mg/dL (65-110); HDL Direct 51 mg/dL; Potassium 4.7 mmol/L (3.4-5.0); Sodium 137 mmol/L (137-145); Triglycerides 92 mg/dL (<150)
[2024-05-30 15:40] LABS: LDL Cholesterol Direct 132 mg/dL
== END 2024-05-30 10:04 | disposition home or self-care (01) ==
LOC: ANHGOSHLAB 10:04
PROVIDERS: PCP Family Medicine; Visit Provider Family Medicine
DX: R73.09 Other abnormal glucose (principal); I10 Essential (primary) hypertension; E66.9 Obesity, unspecified; Z79.899 Other long term (current) drug therapy
CPT/HCPCS: 36415; 80053; 80061; 83036; 84443; 85027

== ENCOUNTER 2024-10-12 01:16 | Day surgery (SDC) | payer OTHER, SELFPAY ==
[2024-09-29 11:46] VITALS: BMI 32.1
--- OUTSIDE RECORDS SUMMARY | 2024-10-12 01:22 | XMS_ITS | Referral Summary ---
Author Organization [facility] al Address [address] [place] [address] Care Team Providers Care Cardiovascular Surgeon Name Role Phone Yvette Weiss Primary Care Provider [phone] Allergies No known active allergies Medications lisinopriL [...] 07/03/2021 Assessment & Plan (07/03/2021 11:21 PM HAMPER MAKER): Advised cutting back on acidic foods, elevating head of bed Will add protonix 40mg daily Discussed gi referral if symptoms aren't improving over the coming month Obesity (BMI 30-39.9) 07/03/2021 Shortness of breath 06/19/2021 Assessment & Plan (07/03/2021 11:20 PM HAMPER MAKER): Stable on inhalers, continue the same at this time Has pending appt with pulwilfredo that she will keep Assessment & Plan (06/19/2021 11:00 AM HAMPER MAKER): We discussed unfortunate limitations of video/phone visit. She declines an er visit at this time. She will add advair bid She will continue with proventil hfa 2 puffs q6h as needed for dyspnea/wheezing She will report to the er this weekend if symptoms worsen Essential hypertension 06/06/2021 Assessment & Plan (07/03/2021 11:19 PM HAMPER MAKER): Stable on current meds, continue the same at this time Assessment & Plan (06/19/2021 11:00 AM HAMPER MAKER): Increase lisinopril to 20mg daily She will continue to monitor home bp with goal 120-130/70-80 She will call over the next week with home bp readings Assessment & Plan (06/06/2021 12:01 PM HAMPER MAKER): Will initiate lisinopril 10mg daily She was advised to monitor bp with goal 130/80, will call over the next week with home bp results Will retrieve er notes from alfonso for review History of COVID-19 06/06/2021 Hydrosalpinx 11/23/2013 Resolved Problems Problem Noted Date Diagnosed Date Resolved Date Encounter to establish care 06/06/2021 07/02/2021 Assessment & Plan (06/06/2021 12:02 PM HAMPER MAKER): She notes routine gynecological care with Dr. 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 Last Filed Vital Signs Vital Sign Reading Time Taken Comments Blood Pressure 124/70 12/16/2021 1:43 PM CDT Pulse 62 12/16/2021 1:43 PM CDT Temperature 36.6 C (97.9 F) 12/16/2021 1:43 PM CDT Respiratory Rate 18 10/16/2021 9:45 AM CDT Oxygen Saturation 99% 12/16/2021 1:43 PM CDT Inhaled Oxygen Concentration - - Weight 87.6 kg (193 lb 1.6 oz) 12/16/2021 1:43 P M CDT Height 154.9 cm (5' 1) 12/16/2021 1:43 PM CDT Body Mass Index [...] 12/27/2013 6:24 AM CDT {Testing performed by: [place] [address]} Interpretive Data If confirmation is required, call Laboratory Customer Service to request sample to be sent to [facility] for Hepatitis C Virus (HCV) RNA Detection and Quantitation by Real-Time Reverse Jewel Bearing Polisher-PCR (RT-PCR). Current interpretive data was last revised on 2011 us Regino Hale MD LAB BLOOD ORDERABLES Final Re sult HISTORICAL RESULTS from Last 3 Months or Most Recently Relevant to Health Maintenance Insurance [facility] H[facility]/PPO Address: [facility] [address] [place] [address] [facility] CHOICE PLUS [facility] HMO/PPO Address: [facility] [id number] [place], [place] [id number] Care Teams Cardiovascular Surgeon Relationship Specialty Start Date End Date Yvette Weiss PA PCP - General Pin Chaser 06/06/21
--- OUTSIDE RECORDS SUMMARY | 2024-10-12 01:22 | XMS_ITS | Clinical Summary ---
Author Organization [employer] [address] Address [address] [facility] [address] [place] [address] Phone Care Team Providers Care Durability Engineer Name Role Phone Unavailable Primary Care Provider [...] of 3 - 19+ 3-dose series) 2002 HPV/Cotest (21-29) 2004 CERVICAL CANCER SCREENING 2013 HPV/Cotest (30-65) 2013 PAP SMEAR 2013 BREAST CANCER SCREENING 2023 INFLUENZA VACCINE (#1) 2023 HPV VACCINES Aged Out No longer eligi ble based on patient's age to complete this topic Insurance [facility] [id number]
--- OUTSIDE RECORDS SUMMARY | 2024-10-12 01:22 | XMS_ITS | CONTINUITY OF CARE DOCUMENT ---
Author Name galina omjica Address Unknown Organization [facility] Office Address [address] [place] [address] [address] [place] [address] Phone [phone] Care Team Providers Care Media Intern Name Role Phone Kylah SHARMA, Carmelo Unavailable [phone] Carmelo Montero MD Unavailable [phone] INSURANCE PROVIDERS Payer name Policy type / Coverage type [place] red republican ID [facility] [id number] Other [id number]
--- OUTSIDE RECORDS SUMMARY | 2024-10-12 01:22 | XMS_ITS | Clinical Summary ---
Author Organization [facility] al Address [address] [place] [address] Care Team Providers Care Training Representative Name Role Phone Yvette Weiss Primary Care Provider [phone] Allergies No known active allergies Medications lisinopriL [...] 07/03/2021 Assessment & Plan (07/03/2021 11:21 PM KNOCK OUT HAND): Advised cutting back on acidic foods, elevating head of bed Will add protonix 40mg daily Discussed gi referral if symptoms aren't improving over the coming month Obesity (BMI 30-39.9) 07/03/2021 Shortness of breath 06/19/2021 Assessment & Plan (07/03/2021 11:20 PM KNOCK OUT HAND): Stable on inhalers, continue the same at this time Has pending appt with pulwilfredo that she will keep Assessment & Plan (06/19/2021 11:00 AM KNOCK OUT HAND): We discussed unfortunate limitations of video/phone visit. She declines an er visit at this time. She will add advair bid She will continue with proventil hfa 2 puffs q6h as needed for dyspnea/wheezing She will report to the er this weekend if symptoms worsen Essential hypertension 06/06/2021 Assessment & Plan (07/03/2021 11:19 PM KNOCK OUT HAND): Stable on current meds, continue the same at this time Assessment & Plan (06/19/2021 11:00 AM KNOCK OUT HAND): Increase lisinopril to 20mg daily She will continue to monitor home bp with goal 120-130/70-80 She will call over the next week with home bp readings Assessment & Plan (06/06/2021 12:01 PM KNOCK OUT HAND): Will initiate lisinopril 10mg daily She was advised to monitor bp with goal 130/80, will call over the next week with home bp results Will retrieve er notes from alfonso for review History of COVID-19 06/06/2021 Hydrosalpinx 11/23/2013 Resolved Problems Problem Noted Date Diagnosed Date Resolved Date Encounter to establish care 06/06/2021 07/02/2021 Assessment & Plan (06/06/2021 12:02 PM KNOCK OUT HAND): She notes routine gynecological care with Dr. [...] on file Legal Sex Female 4:17 AM KNOCK OUT HAND Gender Identity Not on file Sexual Orientation [...] 5 season) 2023 04/09/2021, 06/28/2020 Influenza Vaccine (Season Ended) 2024 01/23/2020 Hepatitis C Screening Completed 12/26/2013 HPV [...] 12/27/2013 6:24 AM CDT {Testing performed by: [place] [address]} Interpretive Data If confirmation is required, call Laboratory Customer Service to request sample to be sent to [facility] for Hepatitis C Virus (HCV) RNA Detection and Quantitation by Real-Time Reverse Mc Kay Stitcher-PCR (RT-PCR). Current interpretive data was last revised on 2011 us Regino Hale MD LAB BLOOD ORDERABLES Final Re sult HISTORICAL RESULTS from Last 3 Months or Most Recently Relevant to Health Maintenance Insurance Care Teams Training Representative Relationship Specialty Start Date End Date Yvette Weiss PA PCP - General Warehouse Receiving Supervisor 06/06/21
--- OUTSIDE RECORDS SUMMARY | 2024-10-12 01:22 | XMS_ITS | Continuity of Care Document ---
Author Organization [facility] Address [address] [place] [address] Phone Care Team Providers Care Waredresser Name Role Phone Unavailable Unavailable Unavailable Advance Directives Directive Yes / No Effective Date File Name No Information Encounters Encounter Description Practice Location Reason(s) For Visit Diagnoses Date Provider Providers Copied on Encounter [facility], [address] [facility], [place], [place], [id number], tel:[phone] [facility] No Information No Information Referring Provider: CLYDE Eisenberg, [address], [place], [address]. tel:[phone] Family History Family Member Type Diagnosis Age At Onset No Information Payers Payer name Insurance type Covered democrat ID Authorcadena lisa(s) [facility] POS [id number] Social History Type Description Quantity Date Captured Comments Sex Female Smoking Status No Information Chief Complaint And Reason For Visit No Information History Of Present Illness Encounter Date Complaint History Of Prese nt Illness No Information Instructions Date Instruction Additional Infor mation No Information Assessments Type Assessment Date No Information
--- OUTSIDE RECORDS SUMMARY | 2024-10-12 01:22 | XMS_ITS | Clinical Summary ---
Author Organization [facility] Address [address] [facility] [place] [address] Care Team Providers Care Clay Preparation Supervisor Name Role Phone Donato Navarro MD Primary Care Provider [phone] Source Comments [facility],non-owned Affiliates and Associated Physician Practices is amultiple site organization consisting of ambulatory clinics and hospital sitesin [place], [place], [place] and [place]. This disclosure is being madepursuant to the Care Everywhere program and may not contain all information available regarding this patient. Last updated 18.[facility] Allergies No known active allergies Medications * Be aware that medications may not be up to date on this document. Alwaysverify current medications with the patient. 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 Gender Identity Not on file Sexual Orientation Not on file Last Filed Vital Signs Vital Sign Reading Time Taken Comments Blood Pressure 112/78 08/20/2022 10:36 AM CDT Pulse 76 08/20/2022 10:36 AM CDT Temperature 36.9 C (98.4 F) 06/05/2016 12:38 PM SQUEEZER OPERATOR Respiratory Rate - - Oxygen Saturation 98% 06/05/2016 12:38 PM SQUEEZER OPERATOR Inhaled Oxygen Concentration - - Weight 88.5 kg (195 lb) 08/20/2022 10:36 AM CDT Height 154.9 cm (5' 1) 08/20/2022 10:36 AM CDT Body Mass Index 36.84 08/20/2022 10:36 AM CDT Plan of Treatment Health Maintenance Due Date Last Done Comments MAMMOGRAM 1985 HIV SCREENING 1998 HEPATITIS C SCREENING 05/16/2001 DTAP/TDAP/TD VACCINES (1 - Tdap) 2002 HEPATITIS B VACCINE (1 of 3 - 19+ 3-dose series) 2002 PAP SMEAR 2004 COVID-19 VACCINE ( - 2023-2 5 season) 2023 DEPRESSION SCREENING 04/26/2024 08/20/2022 INFLUENZA VACCINE (Season Ended) 2024 01/23/20 20 ZOSTER VACCINE (1 of 2) 2033 HIB VACCINE Aged Out No longer eligi ble based on patient's age to complete this topic HPV VACCINE Aged Out No longer eligi ble based on patient's age to complete this topic MENINGOCOCCAL (Group B) VACC INE SHARED DECISION-MAKING Aged Out No longer eligibl e based on patient's age to complete this topic MENINGOCOCCAL GROUPS A/C/Y/W VACCINE Aged Out No longer eligible b ased on patient's age to complete this topic PNEUMOCOCCAL VACCINE Aged Out No long er eligible based on patient's age to complete this topic Insurance Care Teams Clay Preparation Supervisor Relationship Specialty Start Date End Date Donato Navarro MD [address] [place] [address] [address] [place] [address] PCP - General Internal Medicine 06/05/16
--- OUTSIDE RECORDS SUMMARY | 2024-10-12 01:23 | XMS_ITS ---
Author Organization [facility] ([address]) Address [address] [address] Care Team Providers Care Clay House Worker Name Role Phone AmairanimaciePatricia Primary Care Provider UnavailDr. Baldomero Benites Unavailable [phone] ZZ-Migration, Provider Unavailable Unavailab le [facility] Conversion Encounter Medications Medication SIG (Take, Route, Frequency, Duration) Notes Start Date End Date Status Omeprazole 20 MG 1 cap(s) orally once a day for 30 day(s) Active RESMED AIRSENSE 11 E0601 APAP 6-20 CM H2O A7033 - NASAL PILLOWS NIGHTLY for 30 DAYS *Please review for potential replacement for e-prescription and drug interaction check* 10/21/2022 Active Trudhesa 0.725 MG/SPRAY 2 SPRAYS (1 SPRAY PER NOSTRIL) NASAL SPRAY ONCE PRN for 30 DAYS *Please review and pick correct strength-formulat ion from [facility] options. If intended option is not shown, discontinue and re-order from Quick Search* Active ALPRAZolam 0.25 MG 1 tab(s) orally every 8 hours Active Lisinopril 20 MG 1 tab(s) orally once a day for 30 day(s) Active busPIRone HCl 5 MG 1 tab(s) orally 2 times a day Active Amitriptyline HCl 25 MG 1 tab(s) orally once a day (at bedtime) for 30 days Active Co Q 10 100 MG 1 cap(s) orally once a day for 30 day(s) Not-Taking Vitamin B-12 50 MCG 1 tab(s) orally once a day for 30 day(s) Not-Taking Ondansetron HCl 4 MG 1 tab(s) orally every 8 hours Not-Taking Encounters Encounter Location Date Provider Diagnosis [facility] [address] [place] [address] 10/09/2023 Provider KIERRA-Migration Migraine without aura, not intractable, without status migrainosus G43.009 Assessments Encounter Date Diagnosis (ICD Code) Assessment Notes Treatment Notes Treatment Clinical Notes Section Notes 10/09/2023 Migraine without aura, not intractable, without status migrainosus (ICD-10 - G43.009) Plan Of Treatment Medication Medication Name Sig Start Date Stop Date Notes Amitriptyline HCl 25 MG 1 tab(s) orally once a day (at bedtime) for 30 days Next Appt Details Provider Name:Whitney teixeira, 11/30/2024 09:30:00 AM, [address] [facility], [address], [address], Progress Notes * Yamile JOHNSON RDOB:[birth year] (39 yo M)Acc No.[id number]:10/09/2023 Patient: Elvin Yamile PRICE Provider: Elvin Arndt :1985 A ge:38 Y S ex:Male Date:10/09/2023 Address:[address] [place], [place] [address] Pcp:Patricia Carver Subjective: * Chief Complaints: * 1 . [facility] Conversion Encounter. * Medical History: * Medications: T aking busPIRone HCl 5 MG Tablet 1 tab(s) orally 2 times a day , Taking Omeprazole 20 MG Capsule Delayed Release 1 cap(s) orally once a day , Taking Lisinopril 20 MG Tablet 1 tab(s) orally once a day , Taking ALPRAZolam 0.25 MG Tablet 1 tab(s) orally every 8 hours , Taking Trudhesa 0.725 MG/SPRAY SPRAY 2 SPRAYS (1 SPRAY PER NOSTRIL) NASAL SPRAY ONCE PRN , Notes to Pharmacist: *Please review and pick correct strength-formulation from [facility] options. If intended option is not shown, discontinue and re-order from Quick Search*, Taking RESMED AIRSENSE 11 E0601 APAP AUTOPAP WITH E0562 - HEATED CPAP HUMIDIFIER 6-20 CM H2O A7033 - NASAL PILLOWS NIGHTLY , Notes to Pharmacist: *Please review for potential replacement for e- prescription and drug interaction check*, Not-Taking/PRN Ondansetron HCl 4 MG Tablet 1 tab(s) orally every 8 hours , Not-Taking/PRN Vitamin B-12 50 MCG Tablet 1 tab(s) orally once a day , Not-Taking/PRN Co Q 10 100 MG Capsule 1 cap(s) orally once a day Objective: * Vitals: Assessment: * Assessment: 1. M igraine without aura, not intractable, without status migrainosus - G43.009 ? Plan: * Treatment: * Billing Information: * Visit Code: * Procedure Codes: * Electronic signature of Ld LOZADA-Migration on 10/12/2024 at 01:22 AM CDT Sign off status: Pending * Provider: Elvin barlow Migration Date: 10/09/2023 Generated for Kaylyn little/Quinn/Hailee on: 10/12/2024 01:22 AM CDT
--- OUTSIDE RECORDS SUMMARY | 2024-10-12 01:23 | XMS_ITS | Patient Health Record ---
Author Organization [facility] ([address]) Address [address] [place] [address] Care Team Providers Care Project Associate Name Role Phone AmairanimaciePatricia Primary Care Provider UnavailDr. Baldomero Benites Unavailable [phone] Whitney Santos Unavailable [phone] Allergies No Known Allergies Reason For Referral No Information Medications Medication SIG (Take, Route, Frequency, Duration) Notes Start Date End Date Status Amitriptyline HCl 25 MG 1 tab(s) orally once a day (at bedtime) Active busPIRone HCl 5 MG 1 tab(s) orally 2 times a day Active Co Q 10 100 MG 1 cap(s) orally once a day for 30 day(s) Not-Taking Vitamin B-12 50 MCG 1 tab(s) orally once a day for 30 day(s) Not-Taking Ondansetron HCl 4 MG 1 tab(s) orally every 8 hours Not-Taking RESMED AIRSENSE 11 E0601 APAP 6-20 CM H2O A7033 - NASAL PILLOWS NIGHTLY for 30 DAYS *Please review for potential replacement for e-prescription and drug interaction check* 10/21/2022 Active Trudhesa 0.725 MG/SPRAY 2 SPRAYS (1 SPRAY PER NOSTRIL) NASAL SPRAY ONCE PRN for 30 DAYS *Please review and pick correct strength-formulat ion from Med[employer]pan options. If intended option is not shown, discontinue and re-order from Quick Search* Active ALPRAZolam 0.25 MG 1 tab(s) orally every 8 hours Active Lisinopril 20 MG 1 tab(s) orally once a day for 30 day(s) Active Omeprazole 20 MG 1 cap(s) orally once a day for 30 day(s) Active Social History Tobacco Use: Social History Observation Description Date Details (start date - stop date) Never Smoker NA - NA Smoking Smart Form: Question Answer Notes Are you a: never smoker Problems Problem Type SNOMED Code ICD Code Onset Dates Problem Status W/U Status Risk Notes Problem Chronic migraine without aura, non-refractory (disorder) (030120124169838 ) Migraine without aura, not intractable, without status migrainosus (G43.009) Active confirmed Problem Migraine with aura (2318153) Migraine with aura, not intractable, without status migrainosus (G43.109) Active confirmed Problem Chronic migraine without aura, non-intractable (937624303069792 ) Chronic migraine without aura, not intractable, without status migrainosus (G43.709) Active confirmed Problem Episodic cluster headache (674525248) Episodic cluster headache, not intractable (G44.019) Active confirmed Problem Sleep apnea (23674499) Sleep apnea, unspecified (G47.30) Active confirmed Problem Obstructive sleep apnea syndrome (disorder) (17841714) Obstructive sleep apnea (adult) (pediatric) (G47.33) Active confirmed Problem Vertigo of central origin (63778037) Vertigo of central origin (H81.4) Active confirmed Problem Obesity (958008789) Obesity, unspecified (E66.9) Active confirmed Problem Sleep disorder (92346544) Other sleep disorders (G47.8) Active confirmed Problem Hypersomnia (42903173) Hypersomnia, unspecified (G47.10) Active confirmed Vital Signs Blood pressure diastolic 92 mm Hg 06/15/2024 Oximetry 100 % 06/15/2024 Height 61 in 06/15/2024 Blood pressure systolic 144 mm Hg 06/15/2024 Encounters Encounter Location Date Provider Diagnosis [facility] [address] [facility] [address] [place] [address] 12/16/2023 Baldomero Pineda Migraine without aura, not intractable, without status migrainosus G43.009 ; Vertigo of central origin H81.4 and Obstructive sleep apnea (adult) (pediatric) G47.33 [facility] [address] [place] [address] 06/15/2024 Whitney Santos Migraine without aura, not intractable, without status migrainosus G43.009 ; Vertigo of central origin H81.4 and Obstructive sleep apnea (adult) (pediatric) G47.[address] [address] 03/29/2024 Baldomero Pineda [facility] [address] [place] [address] 03/29/2024 Baldomero Pineda Migraine without aura, not intractable, without status migrainosus G43.009 Assessments Encounter Date Diagnosis (ICD Code) Assessment Notes Treatment Notes Treatment Clinical Notes Section Notes 12/16/2023 Migraine without aura, not intractable, without status migrainosus (ICD-10 - G43.009) Continue amitriptyline 25 mg qHS. 12/16/2023 Vertigo of central origin (ICD-10 - H81.4) Continue amitriptyline 25 mg qHS. 03/29/2024 Migraine without aura, not intractable, without status migrainosus (ICD-10 - G43.009) 06/15/2024 Migraine without aura, not intractable, without status migrainosus (ICD-10 - G43.009) -Abortive treatment plan: Continue OTC Excedrin. Gave samples of Ubrelvy and Nurtec.-Preventiv e treatment plan: Continue amitriptyline. -Educated the patient on migraine lifestyle recommendations. I recommended the following measures: avoid known triggers of migraine, drink > 100 fluid ounces of non-caffeinated fluid daily, limit caffeine to 2 servings/day, sleep 7-8 hours/night and address any sleep concerns with us and report symptoms of snoring or fatigue; healthy management of stress; avoid treating headaches more than 2 days/week with abortive medication unless approved in treatment plan; can take Riboflavin 400 mg and Magnesium 500 mg daily as supplements; keep scheduled follow-up appointments 06/15/2024 Vertigo of central origin (ICD-10 - H81.4) Continue amitriptyline. 06/15/2024 Obstructive sleep apnea (adult) (pediatric) (ICD-10 - G47.33) Continue CPAP treatment for NAUN. Discussed that untreated NAUN or CPAP non-compliance can contribute to chronic headaches. 12/16/2023 Obstructive sleep apnea (adult) (pediatric) (ICD-10 - G47.33) Continue with CPAP compliance. Discussed that untreated NAUN or CPAP non-compliance can contribute to chronic headaches. Plan Of Treatment Pending Test Test Name Order Date Sleep Study WatchPAT 300 (Zoll-Wilbert) 0 08/27/2022 Next Appt Details Provider Name:Whitney teixeira, 11/30/2024 09:30:00 AM, [address], [address], [place], [address], Insurance Providers Payer Name Payer Address Payer Phone Subscriber Number Group Number Insured Name Patient Relationship to Insured Coverage Start Date Coverage End Date [facility] [employer] [address] [address] [place] [address] [id number] Sabino Vaz Spouse - patient is the spouse of the insured Medical (General) History Medical History History ICD Code Migraine with aura as above HTN NAUN Surgical History Surgery Date(Month/Year) CCK S/p tubal ligation S/p S/p R knee arthroscopy
--- NOTE | 2024-10-12 08:58 | P.PNAN_ITS ---
Anes - Initial Pre Proc Eval Procedure: Operation Date: 10/12/24 10:30 Proposed Procedures p Colonoscopy - Rian Rahman MD Date/Time: 10/12/24 08:58 Surgeon: Rian Rahman MD Pre Op Diagnosis: Family history of malignant neoplasm of digestive Patient Data Age: 39 Gender: F Height: 1.55 m Weight: 77.27 kg Allergies Allergy/AdvReac Type Severity Reaction Status Date / Time No Known Allergies Allergy Verified 10/12/24 08:58 Home Medications ?Medication ?Instructions ?Recorded ?Confirmed ?Type fluticasone propionate 50 See Rx Instructions .Route 01/08/22 09/29/24 Rx mcg/actuation nasal .COMPLEX #48 grams spray,suspension amitriptyline 25 mg tablet 37.5 mg PO QHS 10/09/22 10/12/24 History semaglutide (weight loss) 1.7 1.7 mg subcut WEEKLY 07/08/23 09/29/24 History mg/0.75 mL subcutaneous pen injector (Jennifer) lisinopril 10 mg tablet 10 mg PO DAILY #90 tabs 07/06/24 10/12/24 Rx alprazolam 0.25 mg tablet 0.25 mg PO TID PRN anxiety #60 tabs 09/07/24 10/12/24 Rx Patient hx anesthesia problems: none Family hx anesthesia problems: none Results Review: All pre-operative results and documents have been reviewed as part of the pre- operative evaluation. [facility] Past Medical History Medical History (Updated 10/11/24 @ 09:44 by Joe Lance DO) Anxiety GERD (gastroesophageal reflux disease) Asthma Hypertension delivery delivered No pertinent past medical history Surgical History Surgical History History of cholecystectomy H/O right knee surgery No pertinent past surgical history Family History Family History Mother Carcinoma of colon Other Diabetes mellitus Family history of kidney disease Hypertension Social History Social History Years smoked: 8 Smoking status: Former smoker Tobacco type: cigarettes Alcohol intake: current Substance use: never Substance use type: does not use Lack of Transportation: No Lack of Food: Never True Current Housing: I Have Housing Concerned About Future Housing: No Difficulty Paying Gas/Electric Bills: No Difficulty Paying for Meds: No Currently Unemployed: No Education: Associate Degree Difficulty w/ Childcare or Family Care: No Living arrangements: with family Occupation/Education: occupation Gender identity (if verbalized by the patient): Female Sexual Orientation (if Verbalized by the Patient): Straight or Heterosexual Spiritual care concerns: No Agree to blood products: Yes Anes - Eval Final PreProcedure Day of Procedure 10/12/24 08:58 Patient weight: overweight Heart: regular rate and rhythm Lungs: clear to auscultation Airway: Mallampati scale class II Neurological: alert and oriented Last oral intake: >/= 8 hours ASA classification: III Emergent: no Anesthetic plan: proceed Anesthesia type and monitoring: general GIVS and standard monitoring Results Review: All pre-operative results and documents have been reviewed as part of the pre- operative evaluation. Informed Consent: The patient's anesthetic plan and its attendant risks and benefits were discussed with the patient/family/POA. Questions were solicited and answers provided to the satisfaction of the patient/family/POA.
[2024-10-12 09:00] VITALS: BP 128/87; PULSE 94; RESP 16; TEMP 36.4; O2SAT 100; BMI 28.5
[2024-10-12] MEDS: LACTATED RINGERS 1,000 ML 150 ML IV CONT (09:08)
--- NOTE | 2024-10-12 10:07 | PM.HPGS ---
History of Present Illness History of Present Illness Consent: Risks, benefits, and alternatives have been discussed and questions answered. Patient agrees to proceed with procedure. Chief complaint: Family history of malignant neoplasm of digestive Narrative: Sandi Vaz is a 39 year old female here for first colonoscopy, mother had colon cancer Review of Systems Review of Systems: All systems reviewed & are unremarkable except as noted in HPI and below PMFSH Past Medical History Medical History (Updated 10/11/24 @ 09:44 by Joe Lance DO) Anxiety GERD (gastroesophageal reflux disease) Asthma Hypertension delivery delivered No pertinent past medical history Surgical History Surgical History History of cholecystectomy H/O right knee surgery No pertinent past surgical history Family History Family History Mother Carcinoma of colon Other Diabetes mellitus Family history of kidney disease Hypertension Social History Social History Years smoked: 8 Smoking status: Former smoker Tobacco type: cigarettes Alcohol intake: current Substance use: never Substance use type: does not use Lack of Transportation: No Lack of Food: Never True Current Housing: I Have Housing Concerned About Future Housing: No Difficulty Paying Gas/Electric Bills: No Difficulty Paying for Meds: No Currently Unemployed: No Education: Associate Degree Difficulty w/ Childcare or Family Care: No Living arrangements: with family Occupation/Education: occupation Gender identity (if verbalized by the patient): Female Sexual Orientation (if Verbalized by the Patient): Straight or Heterosexual Spiritual care concerns: No Agree to blood products: Yes Meds Home Medications and Allergies Home Medications ?Medication ?Instructions ?Recorded ?Confirmed ?Type fluticasone propionate 50 See Rx Instructions .Route 01/08/22 09/29/24 Rx mcg/actuation nasal .COMPLEX #48 grams spray,suspension amitriptyline 25 mg tablet 37.5 mg PO QHS 10/09/22 10/12/24 History semaglutide (weight loss) 1.7 1.7 mg subcut WEEKLY 07/08/23 09/29/24 History mg/0.75 mL subcutaneous pen injector (Jennifer) lisinopril 10 mg tablet 10 mg PO DAILY #90 tabs 03/13/25 06/19/25 Rx alprazolam 0.25 mg tablet 0.25 mg PO TID PRN anxiety #60 tabs 09/07/24 10/12/24 Rx Allergies Allergy/AdvReac Type Severity Reaction Status Date / Time No Known Allergies Allergy Verified 10/12/24 08:58 Vital Signs Vital Signs - 24 hr 10/12/24 09:00 Temperature 97.6 F Pulse Rate 94 Respiratory Rate 16 Blood Pressure 128/87 Pulse Oximetry 100 Oxygen Delivery Room Air Exam Const: General: comfortable and no acute distress HENMT: Face/Nose/Sinus: Normal nares present Eyes: General: appearance normal, both eyes and all related structures Neck: Neck: no JVD Resp: Auscultation: clear to auscultation bilaterally Cardio: Rate: regular rate Rhythm: regular rhythm GI: Inspection: non-distended GI Palp: Yes Soft to palpation Skin: General skin exam: normal color Neuro: Speech: normal speech Extrem: General: normal to inspection Psych: Mental Status: mental status grossly normal Assessment and Plan Assessment and plan (1) Family history of colon cancer in mother: Code(s): Z80.0 - Family history of malignant neoplasm of digestive organs Status: Acute Assessment and Plan: colonoscopy
--- NOTE | 2024-10-12 10:19 | S_PTH ---
PATIENT: Sandi Vaz LOC: [facility]#:[id number] AGE/SX: 39/F ROOM: RE10/12/[address]: Rian Rahman MD : [id number] BED: DIS: 10/12/2024 SPEC #: [id number] RECD: 10/12/24 10:37 STATUS: NINI REQ #: [id number] AMRITA: 10/12/24 10:[address]: Rian Rahman DEPT: [facility] Surgical RECD BY: Uzma Maldonado ENTERED: 10/12/24 10:37 SP TYPE: Surgical OTHR DR: Patricia Carver DO Tissues: A - Rectal Polyp Procedures: Hematoxylin and Eosin Stain Gross and Microscopic Level 4
[2024-10-12 10:21] VITALS: BP 110/66; PULSE 92; RESP 22; O2SAT 98
[2024-10-12 10:31] VITALS: BP 116/78; PULSE 86; RESP 23; O2SAT 96
[2024-10-12 10:41] VITALS: BP 115/85; PULSE 79; RESP 18; O2SAT 100
== END 2024-10-12 10:52 | disposition home or self-care (01) ==
PROVIDERS: PCP Family Medicine; Referring Provider Family Medicine; Visit Provider Internal Medicine Gastroenterology
PROC: 0DJD8ZZ Inspection of Lower Intestinal Tract, Via Natural or Artificial Opening Endoscopic (ICD-10-PCS; CPT 45378; principal; 2024-10-12 10:30)
DX: Z12.11 Encounter for screening for malignant neoplasm of colon (principal); K57.30 Diverticulosis of large intestine without perforation or abscess without bleeding; K62.1 Rectal polyp; K64.8 Other hemorrhoids; Z80.0 Family history of malignant neoplasm of digestive organs; Z87.891 Personal history of nicotine dependence
CPT/HCPCS: 45385; 88305; J2003; J2704; J7120

== ENCOUNTER 2025-02-12 08:19 | Emergency (ER) | payer OTHER, SELFPAY ==
[2025-02-12 08:30] VITALS: BP 160/107; PULSE 102; RESP 16; TEMP 36.4; O2SAT 100
[2025-02-12 09:06] LABS: EDCOVIDSCREEN Negative (Negative); EDINFLUASCREEN Negative (Negative); EDINFLUBSCREEN Negative (Negative); EDSTREPNEGPOS1 Negative (Negative)
--- NOTE | 2025-02-12 09:16 | ED.URI ---
HPI - URI/Sore Throat General Chief Complaint: Upper Respiratory Infection Stated Complaint: Flu Like Time Seen by Provider: 02/12/25 09:02 Source: patient and RN notes reviewed Mode of arrival: ambulatory Limitations: no limitations History of Present Illness HPI Narrative: 39-year-old female patient presents today with complaints sore throat and right ear pain since yesterday with body aches and fever up to 101.5 this morning. She has tried ibuprofen with some improvement and currently rates her pain 6/10. 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 Denies cough, congestion, rhinorrhea. Related Data Allergies Allergy/AdvReac Type Severity Reaction Status Date / Time No Known Allergies Allergy Verified 02/12/25 08:53 PMFSH Past Medical History Medical History Anxiety GERD (gastroesophageal reflux disease) Asthma Hypertension delivery delivered No pertinent past medical history Surgical History Surgical History History of cholecystectomy H/O right knee surgery No pertinent past surgical history Family History Family History Mother Carcinoma of colon Other Diabetes mellitus Family history of kidney disease Hypertension Social History Social History Years smoked: 8 Smoking status: Former smoker Tobacco type: cigarettes Alcohol intake: current Substance use: never Substance use type: does not use Lack of Transportation: No Lack of Food: Never True Current Housing: I Have Housing Concerned About Future Housing: No Difficulty Paying Gas/Electric Bills: No Difficulty Paying for Meds: No Currently Unemployed: No Education: Associate Degree Difficulty w/ Childcare or Family Care: No Living arrangements: with family Occupation/Education: occupation Gender identity (if verbalized by the patient): Female Sexual Orientation (if Verbalized by the Patient): Straight or Heterosexual Spiritual care concerns: No Agree to blood products: Yes Comments At time of signature, I have reviewed and agree with nursing past medical, surgical, social and family history unless otherwise noted. Please see nursing chart for further information. There is no relevant family history pertinent to the presenting complaint Exam Narrative: GENERAL: Mildly ill-appearing, well-nourished, and in no acute distress. HEAD: Normocephalic, atraumatic. EYES: EOMI. No redness or drainage. Conjunctivae normal. ENT: Mucous membranes pink and moist. Nares clear. No rhinorrhea. Mild bilateral middle ear effusions without evidence of bacterial infection. Throat erythematous with 3+ tonsils without exudate. Uvula midline. NECK: Normal AROM. Supple. No lymphadenopathy. CHEST: No respiratory distress. Clear to auscultation. HEART: Regular rate and rhythm. No murmur appreciated. EXTREMITIES: Normal range of motion. No edema. SKIN: Warm, dry, no rash. Capillary refill normal. NEURO: No focal deficits. Alert and oriented x3. Gait steady. PSYCH: Normal affect. No signs of depression or anxiety. Course Course Level of Care: Express Care Visit Vital Signs Vital signs: Vital Signs Temperature 97.5 F L 02/12/25 08:30 Pulse Rate 102 H 02/12/25 08:30 Respiratory Rate 16 02/12/25 08:30 Blood Pressure 160/107 H 02/12/25 08:30 Pulse Oximetry 100 02/12/25 08:30 Oxygen Delivery Room Air 02/12/25 08:30 Temperature 97.5 F L 02/12/25 08:30 Pulse Rate 102 H 02/12/25 08:30 Respiratory Rate 16 02/12/25 08:30 Blood Pressure 160/107 H 02/12/25 08:30 Pulse Oximetry 100 02/12/25 08:30 Oxygen Delivery Room Air 02/12/25 08:30 Reviewed MDM - URI/Sore Throat MDM Narrative Medical decision making narrative: 39-year-old female patient presents today with complaints sore throat and right ear pain since yesterday with body aches and fever up to 101.5 this morning. She has tried ibuprofen with some improvement and currently rates her pain 6/10. 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 Upon exam, patient is mildly ill appearing with Mild bilateral middle ear effusions without evidence of bacterial infection. Throat erythematous with 3+ tonsils without exudate. Your COVID-19, influenza, and rapid strep screens are negative. Strep culture pending. Symptoms likely viral in etiology. Discussed [id number] medication use and duration of illness. No prescription medications indicated at this time. Anticipatory guidance given. Vital signs stable with mildly elevated blood pressure. She did have some ibuprofen this morning prior to arrival that brought down her fever. Differential Diagnosis Differential diagnosis: Likely upper respiratory infection, otitis media, viral infection, influenza, pharyngitis and other (Strep throat, COVID-19) Lab Data Attestation: I reviewed the patient's lab results. Labs: Lab Results 02/12/25 Range/Units 08:33 POC Influenza A Ag Negative (Negative) POC Influenza B Ag Negative (Negative) POC SARS CoV-2 Ag Negative (Negative) POC Grp A Strep Screen Negative (Negative) Critical Care Time Critical Care Time Critical Care Time: No Discharge Plan Discharge Clinical Impression: Viral syndrome Patient Disposition: Home Condition: Stable Instructions: Viral Syndrome (ED) Additional Instructions: Your COVID-19, influenza, and rapid strep swab were negative today at [facility]. You will be notified in a few days if the culture comes back positive for strep, and appropriate antibiotics will be called in for you at that time. Your symptoms are likely due to a viral illness, which is not treated with antibiotics. Viral symptoms can be present for up to 7-10 days. Take Tylenol or ibuprofen for fever or pain. Rest and stay hydrated. Follow up with your PCP in 7 days if symptoms are not improving. Go to the ER immediately if you have any difficulty breathing or swallowing. Patient Language: Vincentian Prescriptions: No Action amitriptyline 25 mg tablet 25 mg PO QHS Qty: 90 1RF lisinopril 10 mg tablet 10 mg PO DAILY Qty: 90 1RF alprazolam 0.25 mg tablet 0.25 mg PO TID PRN (Reason: anxiety) Qty: 60 1RF omeprazole 20 mg capsule,delayed release(DR/EC) 20 mg PO BID Qty: 180 0RF Follow-up/Referrals: Patricia Carver DO [Primary Care Provider, [facility]] Time of Disposition: 09:16
== END 2025-02-12 09:20 | disposition home or self-care (01) ==
PROVIDERS: Emergency Provider Nurse Practitioner; PCP Family Medicine
DX: B34.9 Viral infection, unspecified (principal); J02.0 Streptococcal pharyngitis; Z20.822 Contact with and (suspected) exposure to COVID-19; Z87.891 Personal history of nicotine dependence; I10 Essential (primary) hypertension; K21.9 Gastro-esophageal reflux disease without esophagitis; J45.909 Unspecified asthma, uncomplicated
CPT/HCPCS: 87081; 87426; 87804; 87880; 99213; G0463